=== PATIENT | female | born 1940 | race Caucasian/White ===

== ENCOUNTER 2019-01-14 11:00 | Emergency (ER) | payer OTHER ==
[~2019-01-14] VITALS: Ht 157.5 cm; Wt 64.9 kg
[2019-01-14] MEDS ORDERED: LEVOTHYROXINE100 MCG (11:30)
[2019-01-14] MEDS ORDERED: BISOPROLOL FUMAR5 MG (11:31)
[2019-01-14] MEDS ORDERED: DAFLON (11:31)
[2019-01-14] MEDS ORDERED: VALSARTAN160 MG (11:31)
[2019-01-14] MEDS ORDERED: FORTAMET500 MG (11:32)
[2019-01-14] MEDS ORDERED: CLEOCIN HCL300 MG PO (14:30)
[2019-01-15] MEDS ORDERED: KETOROLAC TROME10 MG PO (16:50)
[2019-01-15] MEDS ORDERED: VALTREX1000 MG PO (16:50)
== END 2019-01-14 15:28 | disposition home or self-care (01) ==
LOC: ER 11:00
DX: L03.213 Periorbital cellulitis (principal); H00.035 Abscess of left lower eyelid

== ENCOUNTER 2019-01-15 12:11 | Emergency (ER) | payer OTHER ==
[~2019-01-15] VITALS: Ht 160 cm; Wt 68.0 kg
[~2019-01-15 12:11] MED LIST: BISOPROLOL FUMAR5 MG; CLEOCIN HCL300 MG PO; DAFLON; FORTAMET500 MG; LEVOTHYROXINE100 MCG; VALSARTAN160 MG
[2019-01-15] MEDS ORDERED: VALTREX1000 MG PO (16:50)
[2019-01-15] MEDS ORDERED: KETOROLAC TROME10 MG PO (16:50)
== END 2019-01-15 17:15 | disposition home or self-care (01) ==
LOC: ER 12:11
DX: B02.8 Zoster with other complications (principal); R51 Headache

== ENCOUNTER 2020-01-31 08:33 | Outpatient (CLI) | payer OTHER ==
[~2020-01-31 08:33] MED LIST changes: +KETOROLAC TROME10 MG PO; +VALTREX1000 MG PO
== END 2020-01-31 08:35 | disposition home or self-care (01) ==
LOC: NUCLEAR 08:33
PROVIDERS: ATTEND Internal Medicine Hematology & Oncology
DX: C44.329 Squamous cell carcinoma of skin of other parts of face (principal); C44.591 Other specified malignant neoplasm of skin of breast; C44.92 Squamous cell carcinoma of skin, unspecified; C77.1 Secondary and unspecified malignant neoplasm of intrathoracic lymph nodes
CPT/HCPCS: 78815; A9552

== ENCOUNTER 2022-04-22 16:56 | Emergency (ER) | payer OTHER ==
[~2022-04-22] VITALS: Ht 160 cm; Wt 72.6 kg
== END 2022-04-22 21:34 | disposition home or self-care (01) ==
LOC: ER 16:56
DX: R07.9 Chest pain, unspecified (principal); I10 Essential (primary) hypertension; Z20.822 Contact with and (suspected) exposure to COVID-19

== ENCOUNTER 2022-06-11 11:59 | Emergency (ER) | payer OTHER ==
[~2022-06-11] VITALS: Ht 142.2 cm; Wt 64.9 kg
== END 2022-06-11 15:01 | disposition home or self-care (01) ==
LOC: ER 11:59
DX: F41.9 Anxiety disorder, unspecified (principal)

== ENCOUNTER 2022-09-12 20:02 | Emergency (ER) | payer OTHER ==
[~2022-09-12] VITALS: Ht 157.5 cm; Wt 68.0 kg
== END 2022-09-13 12:10 | disposition home or self-care (01) ==
LOC: ER 20:02
DX: R41.82 Altered mental status, unspecified (principal)

== ENCOUNTER → 2022-09-15 | Emergency (ER) | payer OTHER | END | disposition left against medical advice (07) | LOC: ER 22:15 | DX: Z53.21 Procedure and treatment not carried out due to patient leaving prior to being seen by health care provider (principal) ==

== ENCOUNTER → 2022-09-26 | Emergency (ER) | payer OTHER ==
[~2022-09-26] VITALS: Ht 152.4 cm; Wt 54.4 kg
== END | disposition left against medical advice (07) ==
LOC: ER 19:11
DX: R53.81 Other malaise (principal); F41.8 Other specified anxiety disorders; F48.8 Other specified nonpsychotic mental disorders; S40.812A Abrasion of left upper arm, initial encounter; W18.39XA Other fall on same level, initial encounter; Y93.89 Activity, other specified; Y92.238 Other place in hospital as the place of occurrence of the external cause; Y99.8 Other external cause status; I10 Essential (primary) hypertension; E05.80 Other thyrotoxicosis without thyrotoxic crisis or storm